=== PATIENT | female | born 1945 | race Caucasian/White ===

== ENCOUNTER 2016-04-13 07:36 | Emergency (ER) | payer MEDICARE, OTHER ==
[2016-04-13] MEDS ORDERED: ONDANSETRON 4 MG VIAL ONE (08:38)
[2016-04-13] MEDS ORDERED: SODIUM CHLORIDE 0.9% 1,000 ML ONE (08:38)
== END 2016-04-13 11:39 | disposition home or self-care (01) ==
LOC: ER 07:36
DX: R30.0 Dysuria (principal); T21.07XA Burn of unspecified degree of female genital region, initial encounter; Y84.2 Radiological procedure and radiotherapy as the cause of abnormal reaction of the patient, or of later complication, without mention of misadventure at the time of the procedure
CPT/HCPCS: 36415; 80053; 81003; 83690; 85025; 96361; 96374; 99285; J2405